=== PATIENT | female | born 2005 | race Caucasian/White ===

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

== ENCOUNTER 2023-09-08 19:21 | Emergency (ER) | payer OTHER ==
[~2023-09-08] VITALS: Ht 154.9 cm; Wt 71.7 kg
[2023-09-08] MEDS ORDERED: PRENA1 TRUE CO1 EACH (20:25)
[2023-09-08 21:30] LABS: HEMATOCRIT 40.9 % (36.0-45.00); MEAN CELL VOLUME 88.3 fL (80.00-100.00); MEAN CORPUSCULAR HEMOGLOBIN 30.2 pg (27.00-32.0); MEAN CORPUSCULAR HGB CONC 34.2 g/dl (32.0-36.0); PLATELET COUNT 196 K/uL (150-450); RED BLOOD COUNT 4.64 M/uL (4.00-6.00); RED CELL DISTRIBUTION WIDTH 14.2 % (11.5-14.5)
[2023-09-08 21:57] LABS: ALBUMIN 3.7 gm/dL (3.4-5.0); ALKALINE PHOSPHATASE 75 U/L (50-136); ALT/SGPT 18 U/L (12-78); ANION GAP 9 (10.0-20.0); AST/SGOT 12 U/L (15-37); BILIRUBIN TOTAL 0.63 mg/dL (0.3-1.2); BLOOD UREA NITROGEN 9 mg/dL (7-18); BUN CREA RATIO 11 (7.0-25.0); CALCIUM 8.3 mg/dL (8.5-10.1); CARBON DIOXIDE 25 mEq/L (21-32); CHLORIDE 109 mmol/L (98-107); CREATININE SERUM 0.79 mg/dL (0.55-1.02); GFR 92.78; GLOBULINA 3.3 G/DL (2.4-3.5); GLUCOSE FASTING 131 mg/dL (65-100); OSMOLALITY SERUM 278 MOSM/KG (275-295); POTASSIUM 3.51 mEq/L (3.5-5.1); SODIUM 139 mmol/L (136-145)
[2023-09-08 21:58] LABS: HCG QUANTITATIVE < 1 mUI/mL (1-3)
[2023-09-08] MEDS ORDERED: PEPCID AC20 MG PO (22:07)
== END 2023-09-08 22:14 | disposition home or self-care (01) ==
LOC: ER 19:22
PROVIDERS: General Practice
DX: O20.9 Hemorrhage in early pregnancy, unspecified (principal); O99.611 Diseases of the digestive system complicating pregnancy, first trimester; K52.9 Noninfective gastroenteritis and colitis, unspecified; K92.89 Other specified diseases of the digestive system; Z3A.11 11 weeks gestation of pregnancy; Z88.8 Allergy status to other drugs, medicaments and biological substances